=== PATIENT | male | born 1955 | race Caucasian/White ===

== ENCOUNTER 2020-11-27 02:29 | Emergency (ER) | payer BC ==
[2020-11-27] MEDS: GI Cocktail Oral Solution 30 ML PO ONE (02:36)
[2020-11-27] MEDS ORDERED: Acetaminophen/Codeine 300-30 MG Tab ONE (03:00)
--- NOTE | 2020-11-27 03:39 | ER ---
HISTORY OF PRESENT ILLNESS: A 65-year-old male here with his with complaints of epigastric pain. He is pointing with 1 finger to the center of the epigastric area, just slightly below the xiphoid process. He tells me he has had this pain since he is 18 years old on an intermittent basis. The first time he had it resolved before he got to the hospital, but since then he has been seen multiple times and he tells me that it always takes some kind of a pain pill to make it go away, usually a Tylenol No. 3 or Dilaudid. The patient is not having any problems with nausea, vomiting, or diarrhea. He is not running a fever. He states he did probably eat too much fish last evening, but otherwise his diet has been okay recently. The patient has recent history of CABG surgery in September and he is doing very well in this regard. He is not having any problems with chest pain or shortness of breath or coughing. The patient tells me he has been seen at [facility]. He has been evaluated at the [facility] for this epigastric pain and it does not seem like they can find a diagnosis. He is on Protonix, which he started taking 3 days ago, prescribed by his primary care provider. OBJECTIVE: GENERAL APPEARANCE: The patient is awake and alert, pleasant and talkative, no obvious distress. VITAL SIGNS: Reviewed as listed. CHEST: Examining the patient's chest reveals a midline sternum scar from the recent CABG surgery that is well healed. There is no sign of irritation or inflammation. He has a small, almost healed incision in the epigastric area midline, which is just above the area of pain. ABDOMEN: Soft, nontender with palpation. Bowel sounds are present. SKIN: Warm and dry. He rates his pain at 8/10. DIAGNOSIS: Epigastric pain, chronic, intermittent in nature. TREATMENT PLAN: A GI cocktail was given to the patient. He states this helped very little after about 10 minutes. We therefore will give him Tylenol No. 3. He is to take 1 tablet every 4-6 hours and he is to go home with this. Diet should be soft and small amounts of food and I advised the patient to followup with his primary care provider as needed, which she already has scheduled. CRS/MODL /[id number]
== END 2020-11-27 03:06 | disposition home or self-care (01) ==
LOC: LB.ED 02:29
DX: R10.13 Epigastric pain (principal)
CPT/HCPCS: 99283; A9270-GY